=== PATIENT | female | born 1980 | race Caucasian/White ===

== ENCOUNTER → 2017-04-13 | Outpatient (CLI) | payer OTHER ==
[~2017-04-13] MED LIST: ALPR0.5T3 PO; DOXY100C PO; DULO1CAP3 PO; LEVO200T4 PO; METR0.753 TOPICAL; RITA20TA PO
[2017-04-13 13:49] LABS: AUTOMATED NEUTROPHIL # 4.4 TH/MM3 (1.8-7.7); BASOPHIL # 0.1 TH/MM3 (0-0.2); BASOPHIL % 1.1 % (0.0-2.0); EOSINOPHIL # 0.4 TH/MM3 (0-0.4); HEMATOCRIT 37.9 % (35.0-46.0); HEMO FLAGS DIFF FINAL; LYMPH % 34.9 % (9.0-44.0); MEAN CELL VOLUME 86.2 FL (80.0-100.0); MEAN CORPUSCULAR HEMOGLOBIN 28.9 PG (27.0-34.0); MEAN CORPUSCULAR HGB CONC 33.5 % (32.0-36.0); MONO % 7.5 % (0.0-8.0); NEUT % 51.5 % (16.0-70.0); PLATELET COUNT 268 TH/MM3 (150-450); RED CELL DISTRIBUTION WIDTH 14.2 % (11.6-17.2); WHITE BLOOD COUNT 8.5 TH/MM3 (4.0-11.0)
[2017-04-13 13:55] LABS: BLOOD, URINE NEG (NEG); GLUCOSE,URINE NEG (NEG); KETONE, URINE NEG (NEG); MUCUS URINE FEW /lpf (OCC); NITRITE,URINE NEG (NEG); SQUAMOUS EPITHELIAL CELL URINE 1 /hpf (0-5); URINE COLOR YELLOW (YELLW/STRAW)
[2017-04-13 14:24] LABS: ANION GAP 7 MEQ/L (5-15); BICARBONATE 28.1 MEQ/L (21.0-32.0); BLOOD UREA NITROGEN 10 MG/DL (7-18); CHLORIDE 106 MEQ/L (98-107); GLOMERULAR FILTRATION RATE 74 ML/MIN (>89); GLUCOSE,FASTING 78 MG/DL (74-99); POTASSIUM 3.7 MEQ/L (3.5-5.1); SODIUM (NA) 141 MEQ/L (136-145)
[2017-04-13 14:38] LABS: BHCG SCREEN QUALITATIVE LESS THAN 1 MIU/ML (0-5)
== END ==
LOC: CPRE 12:42
PROVIDERS: ATTEND Obstetrics & Gynecology
DX: Z01.812 Encounter for preprocedural laboratory examination (principal); N94.6 Dysmenorrhea, unspecified; N85.6 Intrauterine synechiae
CPT/HCPCS: 36415; 80048; 81001; 84703; 85025

== ENCOUNTER 2017-04-22 08:47 | Observation (INO) | payer OTHER ==
[2017-04-22] MEDS ORDERED: ceFAZolin 2 GM PREMIX 50 ML ONE (09:17)
[2017-04-22 09:20] VITALS: BP 106/70; PULSE 88; RESP 16; TEMP 98.8; O2SAT 96
[2017-04-22] MEDS ORDERED: POVIDONE IODINE 5% (ANTISEPSIS KIT) 4 APPLICATIONS EACH NARE PRN (09:30)
[2017-04-22] MEDS ORDERED: CHLORHEXIDINE GLUCONATE 2 % 1 PACK (2 CLOTHS) TOPICAL PRN (09:30)
[2017-04-22] MEDS ORDERED: SODIUM CHLORID 0.9% 500 ML IV PRN (09:30)
[2017-04-22] MEDS ORDERED: INSULIN HUMAN REGULAR 1,000 UNITS/10 ML VIAL SQ PRN (09:30)
[2017-04-22] MEDS ORDERED: METOPROLOL TARTRATE 25 MG TAB PO PRN (09:30)
[2017-04-22] MEDS ORDERED: LACTATED RINGER'S 1000 ML IV PRN (09:30)
[2017-04-22] MEDS ORDERED: ceFAZolin 2 GM PREMIX 50 ML IV SCH (09:30)
[2017-04-22] MEDS ORDERED: ACETAMINOPHEN 1000 MG/100 ML VIAL IV ONE (10:00)
[2017-04-22] MEDS ORDERED: fentaNYL CITRATE 250 MCG/5 ML AMP ONE (10:01)
[2017-04-22] MEDS ORDERED: FAMOTIDINE 20 MG/2 ML VIAL ONE (10:01)
[2017-04-22] MEDS ORDERED: MIDAZOLAM HCL 2 MG/2 ML VIAL ONE (10:01)
[2017-04-22] MEDS ORDERED: NORMOSOL R INJ 1,000 ML IV ONE (12:00)
[2017-04-22] MEDS ORDERED: KETOROLAC TROMETHAMINE 60 MG/2 ML (IM) VIAL IM ONE (12:00)
[2017-04-22] MEDS ORDERED: ONDANSETRON HCL 4 MG/2 ML VIAL IVP PRN (12:00)
[2017-04-22] MEDS ORDERED: PROPOFOL 200 MG/20 ML AMP IV ONE (12:00)
[2017-04-22] MEDS ORDERED: ONDANSETRON HCL 4 MG/2 ML VIAL IV PUSH ONE (12:00)
[2017-04-22] MEDS ORDERED: oxyCODONE/ACETAMINOPHEN 5 MG/325 MG TAB PO PRN (12:00)
[2017-04-22] MEDS ORDERED: SODIUM CHLORIDE 0.9% FLUSH 10 ML FLUSH IV FLUSH PRN (12:00)
[2017-04-22] MEDS ORDERED: IBUPROFEN 600 MG TAB PO PRN (12:00)
[2017-04-22] MEDS ORDERED: ONDANSETRON ODT 4 MG TAB PO PRN (12:00)
[2017-04-22] MEDS ORDERED: ZOLPIDEM TARTRATE 5 MG TAB PO PRN (12:00)
[2017-04-22] MEDS: DOCUSATE SODIUM 100 MG CAP PO SCH ×2 (12:00→22:25)
[2017-04-22] MEDS ORDERED: NEOSTIGMINE 3 MG/3 ML SYR IV ONE (12:00)
[2017-04-22] MEDS ORDERED: DO NOT ADM ANY ANTICOAGULANT DRUGS PRN (12:09)
[2017-04-22] MEDS: LACTATED RINGER'S 1000 ML INJ 1,000 ML IV SCH ×2 (12:50→22:25)
[2017-04-22 13:45] VITALS: BP 119/65; PULSE 81; RESP 20; TEMP 96.1; O2SAT 96
[2017-04-22] MEDS: HYDROmorphone HCL PF 1 MG/ML VIAL IVP PRN ×2 (15:24→22:26)
[2017-04-22 15:49] VITALS: BP 116/72; PULSE 91; RESP 20; TEMP 98.6; O2SAT 97
[2017-04-22 20:45] VITALS: BP 115/67; PULSE 94; RESP 16; TEMP 97.9; O2SAT 95
[2017-04-22] MEDS: SODIUM CHLORIDE 0.9% FLUSH 10 ML FLUSH IV FLUSH SCH (21:00)
[2017-04-23] VITALS: BP 107/63; PULSE 86; RESP 16; TEMP 98.4; O2SAT 96
[2017-04-23] MEDS: HYDROmorphone HCL PF 1 MG/ML VIAL IVP PRN ×2 (02:41→06:12)
[2017-04-23 04:00] VITALS: BP 99/58; PULSE 70; RESP 16; TEMP 96.9; O2SAT 95
[2017-04-23] MEDS ORDERED: LEVOTHYROXINE SODIUM 200 MCG TAB PO SCH (06:00)
[2017-04-23] MEDS: LACTATED RINGER'S 1000 ML INJ 1,000 ML IV SCH (06:12)
[2017-04-23 07:36] LABS: BASOPHIL # 0.1 TH/MM3 (0-0.2); BASOPHIL % 0.4 % (0.0-2.0); EOSINOPHIL % 0.1 % (0.0-4.0); HEMATOCRIT 35.7 % (35.0-46.0); HEMO FLAGS DIFF FINAL; LYMPH % 16.5 % (9.0-44.0); LYMPHOCYTE # 2.4 TH/MM3 (1.0-4.8); MEAN CELL VOLUME 86.5 FL (80.0-100.0); MEAN CORPUSCULAR HEMOGLOBIN 27.9 PG (27.0-34.0); MEAN CORPUSCULAR HGB CONC 32.3 % (32.0-36.0); MONO % 8.1 % (0.0-8.0); NEUT % 74.9 % (16.0-70.0); PLATELET COUNT 264 TH/MM3 (150-450); RED BLOOD COUNT 4.12 MIL/MM3 (4.00-5.30); RED CELL DISTRIBUTION WIDTH 14.1 % (11.6-17.2); WHITE BLOOD COUNT 14.7 TH/MM3 (4.0-11.0)
[2017-04-23 07:50] VITALS: BP 96/53; PULSE 69; RESP 20; TEMP 97.4; O2SAT 97
--- NOTE | 2017-04-23 07:50 | HHI.PR ---
Subjective Remarks Doing well, pain is well controlled, eating well. Objective Vital Signs Vital Signs Date Time Temp Pulse Resp B/P Pulse Ox O2 Delivery O2 Flow Rate FiO2 04/23/17 04:00 96.9 70 16 99/58 95 04/23/17 00:00 98.4 86 16 107/63 96 04/22/17 20:45 97.9 94 16 115/67 95 04/22/17 15:49 98.6 91 20 116/72 97 04/22/17 13:45 96.1 81 20 119/65 96 04/22/17 13:00 56 16 144/87 100 Nasal Cannula 2 04/22/17 12:45 56 16 135/80 99 Nasal Cannula 2 04/22/17 12:30 60 16 129/77 100 Nasal Cannula 2 04/22/17 12:15 80 16 130/76 98 Nasal Cannula 2 04/22/17 12:08 97.6 84 16 126/64 90 Nasal Cannula 2 04/22/17 09:20 98.8 88 16 106/70 96 I/O 04/22/17 04/22/17 04/22/17 04/23/17 04/23/17 04/23/17 07:00 15:00 23:00 07:00 15:00 23:00 Intake Total 100 ml 386 ml 240 ml 1580 ml Output Total 200 ml 650 ml 400 ml Balance -100 ml -264 ml -160 ml 1580 ml Intake Oral 240 ml IV Total 100 ml 386 ml 1580 ml Output Urine Total 200 ml 650 ml 400 ml Result Diagram: 04/23/17 0657 Objective Remarks Chest is clear, regular rate and rhythm. Abdomen is soft and non-distended. Incision is clean and dry. Ext no CCE. A/P Assessment and Plan Post Op Day 1 Doing well Home today and return to office in two weeks. Sindi Singh MD April 23, 2017 07:50
--- NOTE | 2017-04-23 07:51 | HHI.DCPOC ---
Discharge Care Plan Diagnosis: (1) S/P laparoscopic supracervical hysterectomy Report Symptoms to Your Doctor -Temperate above 100.5 degrees -Redness, of incision or excessive or foul smelling drainage -Unusual pain or calf pain -Increased vaginal bleeding -Painful or difficulty urinating -Feelings of extreme sadness or anxiety after 2 weeks Goals to Promote Your Health * To prevent worsening of your condition and complications * To maintain your health at the optimal level Directions to Meet Your Goals Take your medications as prescribed Follow your dietary instruction Follow activity as directed Ensure plenty of rest for recovery Drink fluids for hydration Keep your appointments as scheduled Take your immunizations and boosters as scheduled If your symptoms worsen call your PCP, if no PCP go to Urgent Care Center or Emergency Room Smoking is Dangerous to Your Health. Avoid second hand smoke Call the 24-hour crisis hotline for domestic abuse at Leah Zepeda MD R2 April 23, 2017 07:51
[2017-04-23 08:02] LABS: BICARBONATE 27.9 MEQ/L (21.0-32.0); POTASSIUM 4.1 MEQ/L (3.5-5.1)
[2017-04-23] MEDS: SODIUM CHLORIDE 0.9% FLUSH 10 ML FLUSH IV FLUSH SCH (08:48)
[2017-04-23] MEDS ORDERED: DULoxetine HCl DR 60 MG CAP PO SCH (09:00)
--- NOTE | 2017-04-23 09:21 | MP ---
cc: DORISCARLINE Corrected Copy: 05/06/17 DATE OF SURGERY 04/22/2017 PREOPERATIVE DIAGNOSIS 1. Severe progressive dysmenorrhea 2. History of endometriosis POSTOPERATIVE DIAGNOSIS 1. severe dysmenorrhea. 2. No endometriosis seen PROCEDURE Laparoscopic assisted supracervical hysterectomy/bilateral salpingectomy. ANESTHESIA General endotracheal intubation SURGEON Sindi Singh MD [employer] Radha Zepeda MD/R2 FINDINGS Examination under anesthesia, the vagina was clean, the cervix was small and nulliparous without lesions. The uterus was not palpable. The adnexa were not palpable. The laparoscopic exam revealed a normal appearing uterus, normal cul-de-sacs. The anterior and posterior had normal fallopian tubes, normal ovaries. There was no endometriosis seen. The appendix was normal in length and caliber, but there was some scar tissue around it. The upper abdomen was normal as well. COMPLICATIONS None COUNTS The counts were correct. ESTIMATED BLOOD LOSS 50 cc FLUIDS Crystalloids CONDITION The patient tolerated the procedure well and went to the recovery room in good condition. PROCEDURE IN DETAIL The patient was taken to the operating room, identified by name band and verbally given a general anesthetic and placed in dorsal lithotomy position. She was prepped and draped in the usual sterile fashion and a time-out was taken. Once we all agreed, proceeded with the examination under anesthesia and placing the Tidwell catheter. A weighted speculum was placed in the vagina, the anterior lip of the cervix grasped with a single-tooth tenaculum. The cervix was then cannulized with a Hulka clamp for uterine manipulation. Changing our gloves, we went to the umbilical area. A small subumbilical incision was made and a #5 trocar was introduced under direct vision without difficulty. A pneumoperitoneum was created with 3 liters of CO2. Inferior lateral to the umbilicus on the left we put a 10-mm port under direct vision and a 5-mm port on the right for manipulation. At this point we placed her in Trendelenburg, visualized all the internal organs and proceeded with the hysterectomy. The round ligaments were taken down bilaterally and a bladder flap was created with the harmonic 7 scalpel. The mesosalpinx of the fallopian tubes were then taken down with harmonic scalpel and the broad ligament was taken down to the level of the uterine vessels without difficulty. The uterine vessels were skeletonized and taken to the level of the internal cervical os with the harmonic scalpel. Hemostasis was excellent. Once this had been accomplished the uterus blanched nicely. The bladder flap was pushed back a little farther out of harm's way and, using the harmonic scalpel, we transected the cervix without difficulty after removing the Hulka clamp. Once this had been accomplished the Kleppinger forceps was used to burn the endocervix and the cervical bed. Small bleeders were coagulated with the Kleppinger and a large amount of fluid was used to clean the pelvis out. At this point, the morcellator was placed into the 12-mm port and the specimen was morcellated without difficulty. We turned this in for pathologic evaluation, then we cleaned out the gutters and the cul-de-sac with a large amount of fluid and placed a piece of Interceed over the cervical stump to prevent adhesions. At this point and the 10-mm port was removed and the fascia was repaired with a 2-0 Vicryl. The air was released through the second puncture and the laparoscope was removed under direct vision without difficulty. The skin was repaired with a 4-0 Monocryl in a subcuticular manner. At this point, all the instruments were removed. She tolerated the procedure well and went to the recovery room in good condition. R. MD DHARMESH Ford/GONZALO /2:45 PM /12:15 PM
[2017-04-23 11:28] VITALS: BP 98/55; PULSE 83; RESP 20; TEMP 97.9; O2SAT 96
[2017-04-23] MEDS: oxyCODONE/ACETAMINOPHEN 5 MG/325 MG TAB PO PRN ×2 (11:54→16:10)
[2017-04-23] MEDS: DOCUSATE SODIUM 100 MG CAP PO SCH (11:54)
[2017-04-23 15:00] VITALS: BP 133/67; PULSE 82; RESP 20; TEMP 98.2; O2SAT 91
[2017-04-24] MEDS ORDERED: DULoxetine HCl DR 60 MG CAP PO SCH (09:00)
== END 2017-04-23 16:56 | disposition home or self-care (01) ==
LOC: HSDC 08:47 → EDUNIT# 10:30 → HSDI 11:57 → HOCB 13:29
PROVIDERS: ADMIT Obstetrics & Gynecology; ATTEND Obstetrics & Gynecology
DX: N94.6 Dysmenorrhea, unspecified (principal); N83.8 Other noninflammatory disorders of ovary, fallopian tube and broad ligament; F41.9 Anxiety disorder, unspecified; F32.9 Major depressive disorder, single episode, unspecified; F17.200 Nicotine dependence, unspecified, uncomplicated; Z88.8 Allergy status to other drugs, medicaments and biological substances
CPT/HCPCS: 00840; 58542; 80048; 85025; 86850; 86900; 86901; 88307; 96361; 96374; 96376; C1765; G0378; J0131; J0690; J1170; J1885; J2250; J2405; J2710; J3010; J7120

== ENCOUNTER 2018-01-14 03:10 | Emergency (ER) | payer SELFPAY ==
[~2018-01-14] VITALS: Ht 162.6 cm; Wt 105.1 kg
[2018-01-14 03:17] VITALS: BP 148/90; PULSE 85; RESP 20; TEMP 97.7; O2SAT 98
[2018-01-14] MEDS ORDERED: EFFE150C PO (03:27)
[2018-01-14] MEDS ORDERED: CIPR0.3S RIGHT EAR (03:37)
--- NOTE | 2018-01-14 03:39 | PD ---
HPI Chief Complaint: ENT Complaint Time Seen by Provider: 03:35 Travel History International Travel<30 days: No Contact w/Intl Traveler<30days: No Traveled to known affect area: No History of Present Illness HPI 37-year-old female presents to the emergency department for complaint of bilateral ear irritation. Patient has noted some night specifically the right ear has been more irritated and had some clear drainage. Patient has been using leftover eardrops 2 days with marked improvement or importantly she has run out of her medication. Patient states previously she was treated for bilateral otitis media otitis externa and dermatitis. Patient denies fever or complaints. Patient denies any sinus pressure drainage. Patient is status post hysterectomy. Patient has not yet had an opportunity to follow-up with an research development director. Patient rates discomfort as moderate to severe. PFSH Past Medical History Narrative Medical Thyroid cancer ADD and anxiety otitis media otitis externa endometriosis; thyroidectomy hysterectomy tonsillectomy tobacco use nursing notes reviewed Cancer: Yes (THYROID) Cardiovascular Problems: No Diabetes: No Diminished Hearing: No Endocrine: Yes Gastrointestinal Disorders: No Genitourinary: No Hepatitis: No Hiatal Hernia: No Hypertension: No Immune Disorder: No Medical other: No Musculoskeletal: Yes (CHRONIC JOINT PAIN) Neurologic: No Psychiatric: Yes (ANXIETY, ADD) Reproductive: Yes (ENDOMETRIOSIS) Respiratory: No Thyroid Disease: Yes (THYROIDECTOMY) Tetanus Vaccination: < 5 Years Influenza Vaccination: Yes ?: Not LMP: hyst Past Surgical History Abdominal Surgery: No Body Medical Devices: NONE Cardiac Surgery: No Ear Surgery: No Endocrine Surgery: Yes (THYROIDECTOMY I 2 SURGERIES) Eye Surgery: No Genitourinary Surgery: No Gynecologic Surgery: Yes ([facility] 2003 ) Hysterectomy: Yes Neurologic Surgery: No Oral Surgery: Yes (TONSILLECTOMY) Thoracic Surgery: No Other Surgery: Yes Social History Alcohol Use: No Tobacco Use: Yes Substance Use: No Allergies-Medications (Allergen,Severity, Reaction): Coded Allergies: bupropion (Unverified Adverse Reaction, Severe, INCREASED DEPRESSION, 01/14) citalopram (Unverified Adverse Reaction, Severe, INCREASED DEPRESSION, ) Reported Meds & Prescriptions Reported Meds & Active Scripts Active Ciprodex Otic Drops (Ciprofloxacin-Dexamethasone Otic Drops) 0.3-0.1% Susp 4 Drop RIGHT EAR BID Reported Effexor XR 24 HR (Venlafaxine HCl) 150 Mg Cap 150 Mg PO DAILY Alprazolam 0.5 Mg Tab 0.5 Mg PO HS PRN Ritalin IR (Methylphenidate HCl) 20 Mg Tab 20 Mg PO BIDAC Levothyroxine (Levothyroxine Sodium) 200 Mcg Tab 200 Mcg PO DAILY Review of Systems Except as stated in HPI: all other systems reviewed are Neg Physical Exam Narrative GENERAL: Well-developed well-nourished female no acute distress or respiratory distress SKIN: Warm and dry. HEAD: Normocephalic. EYES: No scleral icterus. No injection or drainage. ENT: Bilateral tympanic membranes without perforation no redness or dullness external auditory canal right greater than left with erythema scant edema no foreign body debris and external auditory canal left external auditory canal pink without induration or narrowing of the diameter of the external auditory canal. NECK: Supple, trachea midline. No JVD or lymphadenopathy. CARDIOVASCULAR: Regular rate and rhythm without murmurs, gallops, or rubs. RESPIRATORY: Breath sounds equal bilaterally. No accessory muscle use. GASTROINTESTINAL: Abdomen soft, non-tender, nondistended. MUSCULOSKELETAL: No cyanosis, or edema. BACK: Nontender without obvious deformity. No CVA tenderness. Data Data Last Documented VS Vital Signs Date Time Temp Pulse Resp B/P (MAP) Pulse Ox O2 Delivery O2 Flow Rate FiO2 01/14/18 03:28 85 18 01/14/18 03:17 97.7 148/90 (109) 98 Orders Orders Ed Discharge Order (01/14/18 03:39) MDM Medical Decision Making Medical Screen Exam Complete: Yes Emergency Medical Condition: Yes Medical Record Reviewed: Yes Differential Diagnosis Contact dermatitis allergic dermatitis otitis externa otitis media tympanic membrane perforation Narrative Course Patient is stable for outpatient management and resumption of antibiotic steroid drops to the right ear and referral to tenderness and throat specialist Diagnosis Primary Impression: Right otitis externa Qualified Codes: H60.91 - Unspecified otitis externa, right ear Referrals: Ear / Nose / Throat Specialist call for appointment Guidance Counselor ENT: Dr Saxena Patient Instructions: General Instructions Additional Instructions: Use eardrops as prescribed 7 days Follow-up with research development director Return to the emergency department for any concerns or change in condition May use ibuprofen/Advil/Motrin 600 mg as often as every 6 hours up to maximum dose of 800 mg every 8 hours may also use acetaminophen/Tylenol every 4-6 hours for minor pain and for fever 100.4F or greater Follow up with your primary care provider Med/Other Pt SpecificInfo: Prescription(s) given Scripts Ciprofloxacin-Dexamethasone Otic Drops (Ciprodex Otic Drops) 0.3-0.1% Susp 4 DROP RIGHT EAR BID for Infection, #1 BOTTLE 1 Refill Prov: Aura Oliva MD 01/14/18 Disposition: 01 DISCHARGE HOME Condition: Stable Aura Oliva MD Jan 14, 2018 03:39
== END 2018-01-14 03:47 | disposition home or self-care (01) ==
LOC: PHED 03:10
DX: H60.91 Unspecified otitis externa, right ear (principal); F41.9 Anxiety disorder, unspecified; Z72.0 Tobacco use; Z85.850 Personal history of malignant neoplasm of thyroid; Z90.710 Acquired absence of both cervix and uterus; Z88.8 Allergy status to other drugs, medicaments and biological substances; Z79.899 Other long term (current) drug therapy
CPT/HCPCS: 99283

== ENCOUNTER → 2018-04-29 | Outpatient (CLI) | payer OTHER ==
[~2018-04-29] MED LIST changes: +CIPR0.3S RIGHT EAR; -DOXY100C PO; -DULO1CAP3 PO; +EFFE150C PO; -METR0.753 TOPICAL
[2018-04-29 13:53] LABS: BACTERIA, URINE RARE /hpf; BILIRUBIN, URINE NEG (NEG); BLOOD, URINE NEG (NEG); GLUCOSE,URINE NEG (NEG); KETONE, URINE NEG (NEG); MUCUS URINE FEW /lpf (OCC); NITRITE,URINE NEG (NEG); SQUAMOUS EPITHELIAL CELL URINE 2 /hpf (0-5); URINE COLOR YELLOW (YELLW/STRAW); URINE LEUKOCYTE ESTERASE NEG (NEG)
[2018-04-29 13:59] LABS: ALBUMIN 3.7 GM/DL (3.4-5.0); AST (GOT) 30 U/L (15-37); AUTOMATED NEUTROPHIL # 4.8 TH/MM3 (1.8-7.7); BASOPHIL # 0.1 TH/MM3 (0-0.2); BASOPHIL % 0.9 % (0.0-2.0); BICARBONATE 25.7 MEQ/L (21.0-32.0); BLOOD UREA NITROGEN 12 MG/DL (7-18); CALCIUM 8.8 MG/DL (8.5-10.1); CHLORIDE 104 MEQ/L (98-107); CHOLESTEROL 222 MG/DL (120-200); CREATININE 0.92 MG/DL (0.50-1.00); EOSINOPHIL # 0.3 TH/MM3 (0-0.4); EOSINOPHIL % 4.1 % (0.0-4.0); GLOMERULAR FILTRATION RATE 68 ML/MIN (>89); GLUCOSE,FASTING 85 MG/DL (74-99); HEMATOCRIT 42.3 % (35.0-46.0); HEMOGLOBIN 14.1 GM/DL (11.6-15.3); LYMPH % 31.9 % (9.0-44.0); LYMPHOCYTE # 2.7 TH/MM3 (1.0-4.8); MEAN CELL VOLUME 87.6 FL (80.0-100.0); MEAN CORPUSCULAR HEMOGLOBIN 29.2 PG (27.0-34.0); MEAN CORPUSCULAR HGB CONC 33.3 % (32.0-36.0); MEAN PLATELET VOLUME 8.8 FL (7.0-11.0); MONO % 6.6 % (0.0-8.0); MONOCYTE # 0.6 TH/MM3 (0-0.9); NEUT % 56.5 % (16.0-70.0); PLATELET COUNT 261 TH/MM3 (150-450); RED BLOOD COUNT 4.82 MIL/MM3 (4.00-5.30); RED CELL DISTRIBUTION WIDTH 13.7 % (11.6-17.2); SODIUM (NA) 139 MEQ/L (136-145); TRIGLYCERIDES 105 MG/DL (42-150); WHITE BLOOD COUNT 8.6 TH/MM3 (4.0-11.0)
[2018-04-29 14:10] LABS: ALKALINE PHOSPHATASE 64 U/L (45-117); ALT (GPT) 40 U/L (10-53); CHOLESTEROL/ HDL RATIO 4.27 RATIO; HDL CHOLESTEROL 51.9 MG/DL (40.0-60.0); LDL CHOLESTEROL 149 MG/DL (0-99); THYROXINE (T4) 5.7 MCG/DL (4.8-13.9); TOTAL BILIRUBIN ADULT 0.3 MG/DL (0.2-1.0); TOTAL PROTEIN 7.5 GM/DL (6.4-8.2)
[2018-04-29 16:35] LABS: HEMOGLOBIN A1C 5.7 % (4.3-6.0)
== END ==
LOC: PLAB 10:11
PROVIDERS: ATTEND Family Medicine
DX: R73.09 Other abnormal glucose (principal); E78.5 Hyperlipidemia, unspecified; E89.0 Postprocedural hypothyroidism; Z77.21 Contact with and (suspected) exposure to potentially hazardous body fluids
CPT/HCPCS: 36415; 80053; 80061; 81001; 83036; 84436; 84443; 85025; 86803